=== PATIENT | female | born 1960 | race African-American/Black ===

== ENCOUNTER 2018-05-03 21:44 | Emergency (ER) | payer MEDICARE, MEDICAID ==
--- NOTE | 2018-05-03 22:40 | RADIOLOGY REPORT (SQ) ---
EXAM DESCRIPTION: XR ANKLE 3 OR MORE VIEWS COMPLETED DATE/TME: 05/03/2018 22:04 CLINICAL HISTORY: 57 years, Female, fell in whole COMPARISON: None. NUMBER OF VIEWS: 3 TECHNIQUE: 3 view right ankle LIMITATIONS: None. FINDINGS: Osteopenia. Lateral soft tissue swelling. Small calcaneal spur. Subtle nondisplaced lateral malleolus fracture deformity. No dislocation. IMPRESSION: Nondisplaced lateral malleolus fracture. Soft tissue swelling. Osteopenia. copyright 2010 [employer]- All Rights Reserved
[2018-05-03] MEDS ORDERED: ACETAMINOPHEN 325 MG TABLET PO ONE (23:14)
--- NOTE | 2018-05-03 23:19 | ER Document Report ---
Addendum entered and electronically signed by NANCI GORDON LCSWA 05/04/18 13:34: Discharge - Discharge Clinical Impression: Skin abrasion, Suicidal ideation Lateral malleolar fracture Qualifiers: Encounter type: initial encounter Fracture type: closed Fracture alignment: nondisplaced Laterality: right Qualified Code(s): S82.64XA - Nondisplaced fract ure of lateral malleolus of right fibula, initial encounter for closed fracture Depression Qualifiers: Depression Type: unspecified Qualified Code(s): F32.9 - Major depressive disorder, single episode, unspecified Condition: Stable Disposition: HOME, SELF-CARE Additional Instructions: You have been evaluated both medical and behavioral health teams have been deemed appropriate for discharge. You are highly encouraged to take your medications as prescribed. If you feel your medications are not working please speak with your outpatient mental health provider to discuss alternate options. You are recommended to follow-up with your outpatient mental health provider and engage in CBT or DBT to assist in interpreting her environment, learning triggers, and building positive coping skills. DEPRESSION: Your evaluation reveals that you have mental depression. While symptoms may be vague, they often include disturbance of sleep, fatigue, loss of appetite, and general loss of interest in life. While depression may be a side effect of drugs, or a reaction to a major change in your life, many cases have no known cause. If depression is acute, and related to a major loss in your life, you can expect it to clear completely with time. If you have been depressed a long time, are prone to repeated bouts of depression or low mood, or have been thinking of suicide, get help. Depression can be treated with anti-depressant medication and counselling. Long-term depression will often take a few weeks to clear, even with appropriate medication. Follow-up care is important. SUICIDAL IDEATION: Suicidal ideation is a common medical term for thoughts about suicide, which may be as detailed as a formulated plan, without the suicidal act itself. Although most people who undergo suicidal ideation do not commit suicide, some go on to make suicide attempts. The range of suicidal ideation varies greatly from fleeting to detailed planning, role playing, and unsuccessful attempts. While thoughts about suicide are common, most people do not carry out serious actions to commit suicide. Based upon your evaluation and discussion with you, we do not believe you are currently at risk to act upon your thoughts of suicide. You have agreed to return to the Emergency Department, at any time, if you feel inclined to act upon your suicidal thoughts. FOLLOW-UP CARE: If you have been referred to a physician for follow-up care, call the physicians office for an appointment as you were instructed or within the next two days. If you experience worsening or a significant change in your symptoms, notify the physician immediately or return to the Emergency Department at any time for re-evaluation. Referrals: [facility] [Outside] - Follow up as needed Original Note: ED General - General Chief Complaint: Psych Problem Stated Complaint: ANKLE INJURY Time Seen by Provider: 05/03/18 22:58 Notes: Patient is a 57-year-old female that comes to the emergency department for chief complaint of right ankle pain, also has complaints of wanting medical clearance. Patient is here with both her daughter and her son, they state they went to [facility], they were told that they need to be medically cleared before she was able to be placed because she had injured her ankle per daughter. Patient explains that she was out in the backyard and stepped in a hole that her dog had dug, twisted her ankle, has had pain and swelling since that time. She also fell and scraped her right knee. Her tetanus is not up-to-date within 5 years. She is not on a blood thinner, she is not diabetic. Past medical history includes bipolar disorder, depression, hypertension. Patient is on Tegretol, Seroquel, prazosin, Elavil, Toprol, and clonazepam 0.5 mg 3 times a day. Daughter states that patient has been over-taking her clonazepam. Bottle was filled on 04/18/2018, had 90 pills, she is supposed to take 3 pills daily, however the bottle is now empty and this was found empty today by the daughter. Patient admits that during the nights she takes more than she is supposed to because when she is left alone with her thoughts she tries to silence them. She stats now she just wants to take pills and shut it all out. She admits that she is suicidal, she states that she "googled if you can go to [facility] after committing suicide", she states she found "one hit" that confirmed this. She states that she feels like a failure as a mom, she feels ugly, she feels like a "slut". Patient and family also states that patient was released from [place] [facility] on Monday after staying there for a week, they all stated that this did not help. TRAVEL OUTSIDE OF THE [place] IN LAST 30 DAYS: No Past Medical History - General Information source: Patient, Relative - Social History Smoking Status: Never Smoker Drug Abuse: None Lives with: Family Family History: Reviewed & Not Pertinent - Past Medical History Cardiac Medical History: Reports: Hx Hypertension - Immunizations Immunizations up to date: No Hx Diphtheria, Pertussis, Tetanus Vaccination: Yes Review of Systems - Review of Systems Constitutional: No symptoms reported EENT: No symptoms reported Cardiovascular: No symptoms reported Respiratory: No symptoms reported Gastrointestinal: No symptoms reported Genitourinary: No symptoms reported Female Genitourinary: No symptoms reported Musculoskeletal: See HPI Skin: No symptoms reported Hematologic/Lymphatic: No symptoms reported Neurological/Psychological: See HPI Physical Exam - Vital signs Vitals: Temp Pulse BP Pulse Ox 97.9 F 92 116/73 96 05/03/18 22:04 05/03/18 22:04 05/03/18 22:04 05/03/18 22:04 - Notes Notes: GENERAL: Alert. No acute distress. HEAD: Normocephalic, atraumatic. EYES: Pupils equal, round, and reactive to light. Extraocular movements intact. ENT: Oral mucosa moist, tongue midline. Oropharynx unremarkable. Airway patent. Nares patent, no nasal septal hematoma, TM's intact. NECK: Full range of motion. Supple. Trachea midline. LUNGS: Clear to auscultation bilaterally, no wheezes, rales, or rhonchi. No respiratory distress. HEART: Regular rate and rhythm. No murmur ABDOMEN: Soft, non-tender. Non-distended. Bowel sounds present in all 4 quadrants. GENITOURINARY: Deferred EXTREMITIES: Abrasion to the right knee but without significant tenderness to the knee, no swelling at the knee, normal range of motion. Lateral malleolus and general ankle area is swollen with soft tissue swelling, no ecchymosis, normal capillary refill and sensation. Normal extremity exams otherwise. BACK: no cervical, thoracic, lumbar midline tenderness. No saddle anesthesia, normal distal neurovascular exam. NEUROLOGICAL: Alert and oriented x3. Normal speech. [cranial nerves II through XII grossly intact]. PSYCH: Forlorn expression, speaks quietly, does not make good eye contact. Minimally communicative at this time. SKIN: Warm, dry, normal turgor. No rashes or lesions noted. Course - Re-evaluation Re-evalutation: X-ray of the right ankle shows a lateral malleolus fracture at the distal fibula, nondisplaced, there is some soft tissue swelling. No other concerning findings. No other signs of injury except for an abrasion to the right knee. Tetanus updated. I discussed with patient, daughter, son in detail. Because of patient's suicidal ideations and expressions of desire to kill herself she was placed on IVC paperwork. I discussed with Dr. Bui. Her work-up including CBC, chemistry, urinalysis, urine drug screen, and EKG without concerning acute findings. Alcohol is negative. Patient was placed in splint immobilization of the right lower extremity, she is now medically cleared, she will be evaluated by the mental health team in the morning. I discussed this with patient and family members, they state understanding and agreement with plan. Patient initially given Tylenol, initially she was fine, then she started having pain and could not sleep, she was provided with pain medication because of her fracture. - Vital Signs Vital signs: Temp Pulse Resp BP Pulse Ox 97.9 F 64 18 104/59 L 99 05/03/18 22:04 05/04/18 02:00 05/04/18 05:01 05/04/18 05:01 05/04/18 05:01 - Laboratory Result Diagrams: 05/03/18 23:35 05/03/18 23:35 Laboratory results interpreted by me: 05/03/18 23:35 AST 43 H Salicylates < 1.0 L Acetaminophen < 10 L Discharge - Discharge Clinical Impression: Skin abrasion, Suicidal ideation Lateral malleolar fracture Qualifiers: Encounter type: initial encounter Fracture type: closed Fracture alignment: nondisplaced Laterality: right Qualified Code(s): S82.64XA - Nondisplaced fracture of lateral malleolus of right fibula, initial encounter for closed fracture Depression Qualifiers: Depression Type: unspecified Qualified Code(s): F32.9 - Major depressive disorder, single episode, unspecified Condition: Stable Disposition: PSYCH HOSP/UNIT
[2018-05-03 23:43] LABS: ABSOLUTE EOSINOPHILS # (AUTO) 0.1 10^3/uL (0.0-0.6); ABSOLUTE LYMPHOCYTES (AUTO) 2.7 10^3/uL (0.5-4.7); ABSOLUTE MONOCYTES (AUTO) 0.5 10^3/uL (0.1-1.4); ABSOLUTE NEUT (AUTO) 4.1 10^3/uL (1.7-8.2); BASOPHILS % (AUTO) 0.3 % (0-2); EOSINOPHILS % (AUTO) 1.5 % (0-6); HEMATOCRIT 37.9 % (36.0-47.0); HEMOGLOBIN 12.5 g/dL (12.0-15.5); LYMPHOCYTES % (AUTO) 36.1 % (13-45); MEAN CORPUSCULAR HEMOGLOBIN 30.9 pg (27.0-33.4); MEAN CORPUSCULAR HGB CONC 33.1 g/dL (32.0-36.0); MEAN CORPUSCULAR VOLUME 93 fl (80-97); MONOCYTES % (AUTO) 6.2 % (3-13); PLATELET COUNT 253 10^3/uL (150-450); RED BLOOD COUNT 4.06 10^6/uL (3.72-5.28); RED CELL DISTRIBUTION WIDTH 13.3 % (11.5-14.0); SEGMENTED NEUTROPHILS % (AUTO) 55.9 % (42-78); TOTAL CELLS COUNTED % (AUTO) 100 %; WHITE BLOOD COUNT 7.4 10^3/uL (4.0-10.5)
[2018-05-04 00:03] LABS: ALANINE AMINOTRANSFERASE 34 U/L (9-52); ALKALINE PHOSPHATASE 125 U/L (38-126); ANION GAP 10 (5-19); ASPARTATE AMINO TRANSFERASE 43 U/L (14-36); BILIRUBIN,DIRECT 0.2 mg/dL (0.0-0.4); BILIRUBIN,TOTAL 0.3 mg/dL (0.2-1.3); BLOOD UREA NITROGEN 12 mg/dL (7-20); CALCIUM 8.9 mg/dL (8.4-10.2); CARBON DIOXIDE 24 mmol/L (22-30); CHLORIDE 106 mmol/L (98-107); GLUCOSE 86 mg/dL (75-110); POTASSIUM 3.8 mmol/L (3.6-5.0); SODIUM 139.6 mmol/L (137-145); TOTAL PROTEIN 7.5 g/dL (6.3-8.2)
[2018-05-04 00:04] LABS: ACETAMINOPHEN < 10 ug/mL (10-30); ALCOHOL < 10 mg/dL (NONE DETECTED); SALICYLATE < 1.0 mg/dL (2.0-20.0)
[2018-05-04] MEDS ORDERED: OXYCODONE HCL IR 5 MG TABLET PO ONE (00:13)
[2018-05-04 05:10] LABS: APPEARANCE,URINE CLEAR; BILIRUBIN,URINE NEGATIVE (NEGATIVE); COLOR,URINE YELLOW; GLUCOSE, URINE NEGATIVE (NEGATIVE); KETONES,URINE NEGATIVE (NEGATIVE); LEUKOCYTE ESTERASE,URINE NEGATIVE (NEGATIVE); NITRITE,URINE NEGATIVE (NEGATIVE); PROTEIN,URINE NEGATIVE (NEGATIVE); URINE SPECIFIC GRAVITY 1.012; UROBILINOGEN,URINE NEGATIVE mg/dL (<2.0)
[2018-05-04 05:25] LABS: URINE AMPHETAMINES SCREEN NEGATIVE; URINE BARBITURATES SCREEN NEGATIVE; URINE BENZODIAZEPINES SCREEN UNCONFIRMED POSITIVE; URINE COCAINE SCREEN NEGATIVE; URINE MARIJUANA (THC) SCREEN NEGATIVE; URINE METHADONE SCREEN NEGATIVE; URINE PHENCYCLIDINE SCREEN NEGATIVE
[2018-05-04] MEDS ORDERED: ACETAMINOPHEN 325 MG TABLET PO PRN (09:39)
--- NOTE | 2018-05-04 10:19 | ER Document Report ---
Doctor's Note Notes: 05/04/18 09:30 Patient with no complaints except for ankle pain. No issues overnight. Vitals stable. Labs normal. Will discuss with mental health. Vitals stable. Labs wnl.
--- NOTE | 2018-05-04 10:50 | PSYCHOLOGICAL NOTE ---
Psych Note - Psych Note Date seen by psych provider: 05/04/18 Time seen by psych provider: 08:25 Psych Note: Reason for Consult: Suicidal ideation Patient discloses continued passive suicidal ideation. She confirms that she was just discharged from the hospital. She reports that she went to [place] because she was looking up on the Internet if you would [facility]. She denies having any plan at any time. She reports she has been inpatient 5 times wants to [place], wants to [place], and 3 times [facility] and [facility]. She reports that we will states have not helped her "at all." She reports that all been since 2012 when she had her gastric bypass surgery. She reports that she has lost 100 pounds since that surgery but has an increase in anxiety and now has panic attacks. She denies having that difficulty prior to surgery. Patient reports that she does not want to because her children "I do not want them to live with her mother that committed suicide." Patient is alert and orientated to person, place, time and circumstance. Mood is flat with flat affect. Patient endorses passive suicidal ideation i.e. no plans means or intent. Delusions are absent behaviors congruent with an intact reality based presentation i.e. organized linear thought process. Eye contact was well-maintained. Conversational speech was low and at times difficult to hear. Intellectual abilities appear to be within the average range. Attention and concentration are good. Insight, judgment, impulse control are fair. No medication recommendations at this time Bipolar disorder per history provided by patient Panic disorder impression/plan: patient is cleared from acute psychiatric services. She does not meet IVC criteria per [place] GS 122C. Patient reports passive suicidal ideation i.e. no plans means or intent. She does admits to having increase in passive suicidal ideation with looking up information on the Internet to see if used to go to [facility] if you kill yourself. Patient was just released from [facility] to [facility] on Monday for this specific concern ie looking up after life on the Internet. Patient has not been taking medications as directed and is misusing her Klonopin. Patient reports 5 separate inpatient psychiatric treatments since 2012 all after having gastric bypass surgery. She reports that since her surgery she has been having panic attacks that have begun to progressively worsen. Patient does have an existing diagnosis of bipolar that was identified prior to her surgery. Inpatient psychiatric treatment would not be appropriate for this patient as the patient needs intense therapeutic services to assist in identifying triggers and building positive coping skills. Patient self identifies that going to [place] and [facility] did not help her "at all." Patient is recommended to continue with her outpatient mental health provider and engage in either CBT or DBT. Dr. Villa was consulted to care management of this patient; attending physicians in agreement with recommendations and disposition.
[2018-05-04 16:25] VITALS: BP 111/67
--- NOTE | 2018-05-04 23:02 | EKG REPORT ---
SEVERITY:- BORDERLINE ECG - SINUS RHYTHM BORDERLINE R WAVE PROGRESSION, ANTERIOR LEADS : Confirmed by: Roderick Lai 04-May-2018 23:02:12
== END 2018-05-04 16:26 | disposition home or self-care (01) ==
LOC: ER 21:44
DX: R45.851 Suicidal ideations (principal); S82.64XA Nondisplaced fracture of lateral malleolus of right fibula, initial encounter for closed fracture; F32.9 Major depressive disorder, single episode, unspecified; X50.0XXA Overexertion from strenuous movement or load, initial encounter; Y92.007 Garden or yard of unspecified non-institutional (private) residence as the place of occurrence of the external cause; I10 Essential (primary) hypertension
CPT/HCPCS: 93005; 99285; 36415; 80307 ×4; 85025; 80053; 81001; 73610; 93010; L1902; A9270 ×3